=== PATIENT | female | born 1980 | race Caucasian/White ===

== ENCOUNTER → 2023-07-20 14:20 | Outpatient (REF) | payer BC, SELFPAY | LOC: WDC 14:20 | PROVIDERS: ATTENDING PHYSICIAN Surgery | DX: Z12.31 Encounter for screening mammogram for malignant neoplasm of breast (principal) | CPT/HCPCS: 77063; 77067 ==

== ENCOUNTER → 2023-10-10 15:03 | Outpatient (REF) | payer BC, SELFPAY | LOC: WDC 15:03 | PROVIDERS: ATTENDING PHYSICIAN Surgery; FAMILY PHYSICIAN Family Medicine | DX: R92.2 Inconclusive mammogram (principal) | CPT/HCPCS: 76641 ==

== ENCOUNTER → 2024-06-13 16:35 | Outpatient (REF) | payer BC, SELFPAY | LOC: RAD 16:35 | PROVIDERS: ATTENDING PHYSICIAN Family Medicine | DX: E04.1 Nontoxic single thyroid nodule (principal) | CPT/HCPCS: 76536 ==

== ENCOUNTER → 2024-07-21 17:48 | Outpatient (REF) | payer BC, SELFPAY | LOC: WDC 17:48 | PROVIDERS: ATTENDING PHYSICIAN Nurse Practitioner Adult Health; FAMILY PHYSICIAN Family Medicine | DX: Z12.31 Encounter for screening mammogram for malignant neoplasm of breast (principal) | CPT/HCPCS: 77063; 77067 ==

== ENCOUNTER 2024-08-17 20:24 | Emergency (ER) | payer BC, SELFPAY ==
[2024-08-17 20:26] VITALS: BP 129/84
--- NOTE | 2024-08-17 21:07 | ED.SKININJ ---
HPI-Injury
General
Chief Complaint: Bite
Source: patient
Exam Limitations: none
Time Seen by Provider: 08/17/24 20:59
Nursing documentation reviewed up to this point in time: agreed with
History of Present Illness-Injury
Initial Injury comments:
44-year-old female presents for evaluation of a dog bite. She was bitten on the right hand earlier today while at a flag football game. She says that she is somewhat acquainted with the dog site manager and says that the dog appeared healthy but is not
100% certain on the vaccination status of the dog. Patient is unsure of her own tetanus status.
Review of Systems
Review of Systems
All Other Systems: ROS reviewed and negative except as documented in HPI and ROS
Skin: Reports other (Dog bite)
Phy Exam
Physical Exam
Physical Exam:
General: Well appearing and non-toxic
HEENT: protecting airway
Neck: appears supple
CV: No evidence of cyanosis
Resp: No accessory muscle use
Abd: Non-distended
Extremities: No deformities
Neuro: Alert
Psych: Normal affect
Skin: Minor puncture wound right hand dorsal aspect base of the fifth digit
Scores
Heart Failure Risk
Heart Failure Risk Score: Not Applicable
Heart Score for Chest Pain Patients
STEMI patient?: Not applicable
Withdrawal Assessment of Alcohol
Withdrawal Assessment Completed?: Not applicable
Course
Orders/Labs/Results
Orders:
Orders
08/17/24 20:59
Amoxicillin 875 mg/Clav 125 mg [Augmentin 875 mg/125 mg] 1 tablet PO NOW STA
Rabies Vaccine (Pcec)/Pf [Rabavert Rabies Vacc W-Diluent] 2.5 unit IM .ONCE ONE
Tetanus/Diphth/Acelpertussis [Adacel] 0.5 ml IM .ONCE ONE
Vital Signs
Initial and Last Documented VS:
Initial Vital Signs
Temp Pulse Resp BP Pulse Ox
36.8 C 74 20 129/84 99
08/17/24 20:26 08/17/24 20:26 08/17/24 20:26 08/17/24 20:26 08/17/24 20:26
Last Documented Vital Signs
Temp Pulse Resp BP Pulse Ox
36.8 C 74 20 129/84 99
08/17/24 20:26 08/17/24 20:26 08/17/24 20:26 08/17/24 20:26 08/17/24 20:26
MDM/Problems Addressed
Differential Diagnosis Includes:
Dog bite
MDM/Problems Addressed:
44-year-old female presents after dog bite. Patient unsure of her own tetanus status�will update her tetanus shot. Wound was irrigated, will treat with prophylactic antibiotic. Spoke to the patient about need for rabies prophylaxis�this is a
lower risk exposure�dog is healthy and patient says that she will be able to speak with the owners about vaccination status in the future. Spoke about initiating rabies prophylaxis versus waiting to speak with site manager and she feels comfortable
waiting and I think this is reasonable based on this clinical scenario.
*Critical Care Note
Total Time (30-74mins, 75-104mins- exclusive of procedures): Not Applicable
Data Reviewed
Prescriptions/Medications Considered But Not Given:
Considered rabies prophylaxis
ED Attending Note
-
Portions of this chart may have been created with voice recognition software.� Occasional wrong word or��sound alike� substitutions may have occurred due to the inherent limitations of voice recognition software.
Discharge Plan
Departure
Patient Disposition: Home (Routine Discharge)
Date of Disposition: 08/17/24
Time of Disposition: 21:12
Patient with high blood pressure during this ER visit?: No
Discharge Problem:
Dog bite
Instructions: Animal Bites (DC)
Prescriptions:
New
amoxicillin-pot clavulanate 875-125 mg tablet
1 tab PO BID Qty: 14 0RF
Activity Restrictions/Additional Instructions:
Thank you for visiting the Emergency Department at [facility].
1. Please schedule a follow up appointment as directed. Call first thing tomorrow morning to make an appointment.
2. If indicated, please take your medications as instructed and indicated on discharge paperwork.
3. If any of your symptoms do not improve, or persist, or become more severe within 6-12 hours, please return to the emergency department for further care.
4. Please return to the emergency department if you develop a headache, neck pain/stiffness, fever greater than 100.4F, chest pain, shortness of breath, persistent nausea, vomiting, slurred speech, difficulty walking, numbness/tingling, weakness,
signs of infection or any other symptoms that are worrisome to you.
Please call [phone] if you have any questions.
Interventions
Interventions:
*Risk Screen - Suicide Last Done: 08/17/24 20:26
*General Assessment Last Done: 08/17/24 20:26
*Neglect/Abuse Screening Last Done: 08/17/24 20:26
*Nursing Disposition Last Done: 08/17/24 21:25
ED-Skin Assessment Last Done: 08/17/24 21:18
Discharge Date and Time
Discharge Date/Time: 08/17/24 21:25
Print Language: GRENADIAN
[2024-08-17] MEDS: AUGMENTIN 875 MG/125 MG 1 TABLET PO (21:12)
[2024-08-17] MEDS: ADACEL 0.5 ML IM (21:13)
== END 2024-08-17 21:25 | disposition home or self-care (01) ==
LOC: EMR 20:24
PROVIDERS: EMERGENCY PHYSICIAN Emergency Medicine; FAMILY PHYSICIAN Family Medicine
DX: S61.236A Puncture wound without foreign body of right little finger without damage to nail, initial encounter (principal); W54.0XXA Bitten by dog, initial encounter; Z23 Encounter for immunization; F41.9 Anxiety disorder, unspecified; F32.A Depression, unspecified
CPT/HCPCS: 99283; 90471; 90675; 90715

== ENCOUNTER → 2024-10-24 09:55 | Outpatient (REF) | payer BC, SELFPAY | LOC: WDC 09:55 | PROVIDERS: ATTENDING PHYSICIAN Nurse Practitioner Adult Health; FAMILY PHYSICIAN Family Medicine | DX: R92.2 Inconclusive mammogram (principal) | CPT/HCPCS: 76641 ==

== ENCOUNTER → 2024-10-31 08:25 | Outpatient (REF) | payer BC, SELFPAY ==
--- NOTE | 2024-11-03 09:17 | OID.BR.INTR ---
OID Breast Navigator - Initial
- -
Did not meet patient at time of biopsy. Will follow up per protocol.
== END ==
LOC: WDC 08:25
PROVIDERS: ATTENDING PHYSICIAN Nurse Practitioner Adult Health; FAMILY PHYSICIAN Family Medicine
DX: N63.11 Unspecified lump in the right breast, upper outer quadrant (principal)
CPT/HCPCS: 19083; 88305; A4648

== ENCOUNTER → 2025-02-03 19:35 | Outpatient (REF) | payer BC, SELFPAY | LOC: MRI 3T 19:35 | PROVIDERS: ATTENDING PHYSICIAN Physician Assistant; FAMILY PHYSICIAN Family Medicine | DX: H93.A1 Pulsatile tinnitus, right ear (principal) | CPT/HCPCS: 70549; 70553; A9575 ==